=== PATIENT | female | born 1965 ===

== ENCOUNTER 2018-06-04 09:15 | Day surgery (SDC) | payer BC ==
[2018-05-29 12:28] VITALS: BMI 15.7
[2018-06-04] MEDS ORDERED: Midazolam 2 MG/2 ML VIAL ONE (11:32)
[2018-06-04] MEDS ORDERED: Flumazenil 0.1 mg/ml Inj (5ml) IVP ONE (11:32)
[2018-06-04] MEDS ORDERED: Naloxone 0.4 mg/ml Inj (Adult) ONE (11:32)
[2018-06-04] MEDS ORDERED: Midazolam 2 MG/2 ML VIAL IV ONE ×2 (11:44→11:46)
[2018-06-04] MEDS ORDERED: Sodium Chloride 0.9% 1,000 ML IV SCH (12:45)
[2018-06-04 14:17] VITALS: PULSE 82; RESP 18; TEMP 98.1; O2SAT 96
[2018-06-04 14:25] VITALS: BP 106/66
--- NOTE | 2018-06-04 16:34 | CARD ---
APPROVED REPORT Date of service: 06/04/2018 EXAM: Transesophageal echocardiogram with color flow Doppler. INDICATION Aortic Vascular Disease 2D DIMENSIONS LVOT Diameter2.1 (1.8-2.4cm) Aortic Valve AoV Peak Qinfcozx674.0cm/sAoV WPU472.0cmAO Peak GR.76mmHg LVOT Peak Vfldafzn894.0cm/sLVOT VTI21.90cmAO Mean GR.49mmHg ANGELITO (VMAX)0.59ih4CQU (VTI)0.74cm2 Mitral Valve E/A ratio0.0 TDI E/Lateral E'0.0E/Medial E'0.0 Tricuspid Valve TR Peak [id number]/sRAP [id number] Peak Gr.25mmHg [id number] Reason For Test : To Assess severity PROCEDURE After obtaining informed consent, patient underwent transesophageal echo in the Echo Lab. Type of Sedation : Conscious Sedation Sedation was administered by Dr. rogel. Sedation was achieved with Versed abd Fentanyl 2 mg ang 75 mcg intravenously. Transesophageal probe was inserted and advanced into esophagus without difficulty. Echo enhancement indication: R/O Septal defect. Echo enhancement agent administered: Agitated Saline The FRED was performed without complications. Throughout the procedure, the blood pressure, pulse oximetry, cardiac rhythm, and rate were monitored. The patient tolerated the procedure without adverse effects. Recovery from conscious sedation was uneventful and vital signs were stable. LEFT VENTRICLE The left ventricle is normal size. There is mild concentric left ventricular hypertrophy. The left ventricular function is normal.EF-65% There is normal LV segmental wall motion. The left ventricular diastolic function is normal. No left ventricle thrombus noted on this study. There is no ventricular septal defect visualized. There is no left ventricular aneurysm. There is no mass noted in the left ventricle. RIGHT VENTRICLE The right ventricle is normal size. There is normal right ventricular wall thickness. The right ventricular systolic function is normal. ATRIA The left atrium is mildly dilated. The right atrium is mildly dilated. The interatrial septum is intact with no evidence for an atrial septal defect. AORTIC VALVE The aortic valve is bicuspid. There is trace aortic regurgitation. There is moderate to severe valvular aortic stenosis. ANGELITO by planimetry 0.9-1.0 cm2, and By continuity 0.8-0.9 cm2 There is no aortic valvular vegetation. MITRAL VALVE The mitral valve leaflets are thickened. There is no evidence of mitral valve prolapse. There is no mitral valve stenosis. Mitral regurgitation is mild. TRICUSPID VALVE The tricuspid valve leaflets display thickening. There is mild to moderate tricuspid regurgitation.RVSP_35 mmof hg. There is no tricuspid valve prolapse or vegetation. There is no tricuspid valve stenosis. PULMONIC VALVE The pulmonary valve is normal in structure. There is trace pulmonic valvular regurgitation. There is no pulmonic valvular stenosis. GREAT VESSELS The aortic root is normal in size. The ascending aorta is normal in size. The pulmonary artery is normal. The IVC is normal in size and collapses >50% with inspiration. PERICARDIAL EFFUSION There is no pericardial effusion. There is no pleural effusion. <Conclusion> The left ventricle is normal size. There is mild concentric left ventricular hypertrophy. The left ventricular function is normal.EF-65% There is trace aortic regurgitation. There is moderate to severe valvular aortic stenosis. ANGELITO by planimetry 0.9-1.0 cm2, and By continuity 0.8-0.9 cm2 Mitral regurgitation is mild. There is mild to moderate tricuspid regurgitation.RVSP_35 mmof hg. Velocity in ONI is more than 0.8 m/s Intact intra atrial septum by colorflow and bubble study. The aortic valve is bicuspid. F/u Echo in 1-2 year to monitor progression of is recommended, Pt may need TAVR in Near future.
== END 2018-06-04 14:45 | disposition home or self-care (01) ==
LOC: SDSVAS 09:15 → EDBD 11:00 → SDSVAS 14:45
PROVIDERS: ATTEND Internal Medicine Cardiovascular Disease
DX: I08.0 Rheumatic disorders of both mitral and aortic valves (principal)
CPT/HCPCS: 93312; J2250; J3010; J7030